=== PATIENT | female | born 1985 | race Caucasian/White ===

== ENCOUNTER 2018-10-15 18:55 | Emergency (ER) | payer MEDICAID, OTHER ==
[~2018-10-15] VITALS: Ht 175.3 cm; Wt 54.4 kg
--- NOTE | 2018-10-15 19:19 | NUR ---
ASSISSTED MD WITH EXAMINING PT. PT TOLERATED WELL.
[2018-10-15] MEDS ORDERED: MAGNESIUM CITRATE 296 ML BOTTLE ONE (19:28)
[2018-10-15] MEDS ORDERED: CEFTRIAXONE 500 MG VIAL ONE (19:28)
[2018-10-15] MEDS ORDERED: AZITHROMYCIN 250 MG TABLET ONE (19:28)
[2018-10-15] MEDS ORDERED: AZITHROMYCIN 250 MG TABLET PO ONE (19:30)
[2018-10-15] MEDS ORDERED: MAGNESIUM CITRATE 296 ML BOTTLE PO ONE (19:30)
[2018-10-15] MEDS ORDERED: CEFTRIAXONE 500 MG VIAL IM ONE (19:30)
--- NOTE | 2018-10-15 19:47 | NUR ---
Patient discharged to home in stable conditon. Written and verbal after care instructions given. Patient verbalizes understanding of instructions. PATIENT LEFT WITH STABLE GAIT.
[2018-10-15 19:48] VITALS: BP 110/81
== END 2018-10-15 19:49 | disposition home or self-care (01) ==
LOC: ER 18:55
DX: A54.9 Gonococcal infection, unspecified (principal); K59.00 Constipation, unspecified; F41.9 Anxiety disorder, unspecified; N92.0 Excessive and frequent menstruation with regular cycle; F17.200 Nicotine dependence, unspecified, uncomplicated; Z88.2 Allergy status to sulfonamides
CPT/HCPCS: 96372; 99283; J0696; A4663; Q0144

== ENCOUNTER 2018-11-17 23:14 | Emergency (ER) | payer MEDICAID ==
[~2018-11-17] VITALS: Ht 175.3 cm; Wt 65.8 kg
--- NOTE | 2018-11-17 23:27 | NUR ---
ER at bedside
[2018-11-17] MEDS ORDERED: MORPHINE SULFATE 2 MG/1 ML DISP.SYRIN IV ONE (23:30)
[2018-11-17] MEDS ORDERED: ONDANSETRON 4 MG/2 ML VIAL IV ONE (23:30)
[2018-11-17] MEDS ORDERED: PANTOPRAZOLE SODIUM 40 MG VIAL IV ONE (23:30)
[2018-11-17] MEDS ORDERED: IV NORMAL SALINE 1000 ML BAG IV ONE (23:30)
[2018-11-17] MEDS ORDERED: PANTOPRAZOLE SODIUM 40 MG VIAL ONE (23:48)
[2018-11-17] MEDS ORDERED: MORPHINE SULFATE 4 MG/1 ML DISP.SYRIN ONE (23:48)
[2018-11-17] MEDS ORDERED: ONDANSETRON 4 MG/2 ML VIAL ONE (23:48)
[2018-11-17 23:50] LABS: BASOPHILS # (AUTO) 0.1 K/uL (0.0-8.0); BASOPHILS % (AUTO) 0.3 % (0.0-2.0); EOSINOPHILS % (AUTO) 0.1 % (0.0-7.0); HEMATOCRIT 30.2 % (31.2-41.9); HEMOGLOBIN 9.8 g/dL (10.9-14.3); LYMPHOCYTES # (AUTO) 0.6 K/uL (20.0-40.0); MEAN CORPUSCULAR HEMOGLOBIN 23.6 uug (24.7-32.8); MEAN CORPUSCULAR HGB CONC 32 g/dL (32.3-35.6); MEAN CORPUSCULAR VOLUME 72.9 fL (75.5-95.3); MONOCYTES % (AUTO) 4.8 % (0.0-11.0); NEUTROPHILS # (AUTO) 18.5 K/uL (1.8-8.9); NEUTROPHILS % (AUTO) 91.8 % (38.5-71.5); PLATELET COUNT (AUTO) 383 K/uL (179-408); RED BLOOD CELL COUNT(AUTO) 4.14 MIL/uL (3.63-4.92); WHITE BLOOD COUNT (AUTO) 20.2 K/uL (3.8-11.8)
[2018-11-18 00:02] LABS: POTASSIUM 2.7 mmol/L (3.5-5.1)
[2018-11-18 00:03] LABS: BILIRUBIN,DIRECT 0.2 mg/dL (0.0-0.2); BILIRUBIN,TOTAL 0.4 mg/dL (0.2-1.0); TOTAL PROTEIN, SERUM 7.3 g/dL (6.4-8.2)
[2018-11-18] MEDS ORDERED: KETOROLAC TROMETHAMINE 30 MG INJ ONE (00:07)
[2018-11-18] MEDS ORDERED: POTASSIUM CHLORIDE 50 ML ONE (00:08)
--- NOTE | 2018-11-18 00:13 | NUR ---
Patient ambulated to restroom with stable gait. VSS.
[2018-11-18] MEDS ORDERED: POTASSIUM CHLORIDE 50 ML IV SCH (00:15)
[2018-11-18] MEDS ORDERED: KETOROLAC TROMETHAMINE 30 MG INJ IVP ONE (00:15)
--- NOTE | 2018-11-18 01:51 | NUR ---
Patient back from CT. No acute distress noted. VSS
[2018-11-18] MEDS ORDERED: CIPR-263 PO (02:05)
--- NOTE | 2018-11-18 02:12 | NUR ---
Patient in bed, no acute distress noted. VSS
--- NOTE | 2018-11-18 02:53 | NUR ---
Patient pending CT reading then cleared for Inpatient admission.
--- NOTE | 2018-11-18 03:26 | NUR ---
Patient discharged to home in stable conditon. Written and verbal after care instructions given. Patient verbalizes understanding of instructions. Ambulated from ER with stable gait. All belongings with patient. Peripheral IV removed prior to d/c.
[2018-11-18 03:27] VITALS: BP 121/67
== END 2018-11-18 03:30 | disposition home or self-care (01) ==
LOC: ER 23:18
DX: K59.00 Constipation, unspecified (principal); E87.6 Hypokalemia; F17.200 Nicotine dependence, unspecified, uncomplicated; Z88.2 Allergy status to sulfonamides; Z79.2 Long term (current) use of antibiotics
CPT/HCPCS: 36415 ×2; 74176; 76705; 80048; 80076; 83690; 83735; 84702; 85025; 96365; 96375; 99284; C9113; J1885; J2270; J2405; J3480; A4663

== ENCOUNTER 2018-11-19 22:25 | Emergency (ER) | payer MEDICAID ==
[~2018-11-19] VITALS: Ht 175.3 cm; Wt 56.7 kg
[~2018-11-19 22:25] MED LIST: CIPR-263 PO
--- NOTE | 2018-11-19 22:28 | NUR ---
PATIENT SENT TO WAITING WITH NO DISTRESS. NO ROOMS AVAILABLE IN ER AT THIS TIME
--- NOTE | 2018-11-19 23:00 | NUR ---
PATENT WAS CALLED SEVERAL TIMES TO BE PLACE IN ROOM. PATIENT WAS NOT PRESENT
--- NOTE | 2018-11-19 23:15 | NUR ---
PATIENT WAS NOT SEEN BY ERMD
== END 2018-11-19 23:15 | disposition left against medical advice (07) ==
LOC: ER 22:25
DX: Z53.21 Procedure and treatment not carried out due to patient leaving prior to being seen by health care provider (principal)
CPT/HCPCS: A4663

== ENCOUNTER 2021-07-26 05:54 | Inpatient (IN) | payer MEDICAID ==
[~2021-07-26] VITALS: Ht 175.3 cm; Wt 56.7 kg
[2021-07-26] MEDS ORDERED: IV NORMAL SALINE 250 ML IV ONE (07:10)
[2021-07-26] MEDS ORDERED: SWABABLE VALVE TRANSFER SET EA MC ONE (07:10)
[2021-07-26] MEDS ORDERED: IOHEXOL 300MG/ML 100 ML INFUS..BTL ONE (07:10)
[2021-07-26] MEDS ORDERED: SULF1TAB48 PO (07:13)
[2021-07-26 07:17] LABS: HEMATOCRIT 31.8 % (31.2-41.9); MEAN CORPUSCULAR HEMOGLOBIN 23.7 uug (24.7-32.8); MEAN CORPUSCULAR VOLUME 72.7 fL (75.5-95.3); PLATELET COUNT (AUTO) 450 K/uL (179-408)
[2021-07-26 07:22] LABS: CREATININE 0.9 mg/dL (0.6-1.3); POTASSIUM 3.8 mmol/L (3.5-5.1)
[2021-07-26 07:28] LABS: *BILIRUBIN,URIN NEGATIVE (NEGATIVE); *BLOOD, URINE NEGATIVE (NEGATIVE); *CLARITY,URINE CLEAR (CLEAR); *COLOR,URINE YELLOW (YELLOW); *KETONES,URINE NEGATIVE (NEGATIVE); *UROBILINOGEN,URINE 0.2 E.U./dl (NORMAL); LEUKOCYTE ESTERASE ,URINE NEGATIVE (NEGATIVE); NITRITE, URINE NEGATIVE (NEGATIVE); PH,URINE 5.5 (5.0-8.0); UGLUCOSE NEGATIVE (NEGATIVE)
[2021-07-26 07:28] LABS: BILIRUBIN,TOTAL 0.2 mg/dL (0.2-1.0); TOTAL PROTEIN, SERUM 7.7 g/dL (6.4-8.2)
[2021-07-26 07:31] LABS: *URINE HCG, QUAL NEG (NEGATIVE)
--- NOTE | 2021-07-26 09:03 | NUR ---
Patient is for admission to medical-surgical floor, pending insurance authorization for admission per ER registration staff Rene. Patient is resting comfortably on gurney while using her personal electronic device, NAD.
[2021-07-26] MEDS ORDERED: VANCOMYCIN 1G/D5W 200 ML PIGGYBACK IV ONE (09:15)
[2021-07-26] MEDS ORDERED: CEFTRIAXONE 1 G in IV DEXTROSE 5% 50 ML IV ONE (09:15)
--- NOTE | 2021-07-26 09:20 | NUR ---
[facility] hospitalist BREAKDOWN PERSON Robin [email or web address], pending callback from 3rd floor nurse November to get hands off report.
[2021-07-26] MEDS ORDERED: CEFTRIAXONE /D5W 50ML IVPB **ER PYXIS IV ONE (09:27)
[2021-07-26] MEDS ORDERED: VANCOMYCIN IV 200 ML ONE (10:02)
--- NOTE | 2021-07-26 10:55 | NUR ---
ADMITTED PATIENT FROM ER VIA STRETCHER ASSISTED BY KIMBERLEY MAGALLANES. SHE IS A/OX4, PHOTO TAKEN TO THE CHART RECORD. BELONGING LIST DONE AND SIGNED. SIGNED CONSENT FOR THE I&D. MRSA SWAB DONE ORDERED AND SENT TO THE LAB. SHE IS ON NPO, HAD A SIP OF COFFEE PER PATIENT, REPORT GIVEN TO KIMBERLEY JAQUEZ IN OR AND AWARE OF THE LAST MEAL AT 2AM AND COFFEE AT 7AM. ORIENTED PATIENT TO THE ROOM. KEPT CALL LIGHT WITHIN REACH. WILL CONTINUE TO MONITOR.
[2021-07-26] MEDS ORDERED: ONDANSETRON 4 MG/2 ML VIAL IV PRN (11:00)
[2021-07-26] MEDS ORDERED: ZOLPIDEM 5 MG TABLET PO PRN (11:00)
[2021-07-26 11:30] VITALS: BP 120/57
[2021-07-26] MEDS: IV D5 1/2 NS 1000 ML 1,000 ML IV PRN (11:48)
[2021-07-26] MEDS: MORPHINE SULFATE 4 MG/1 ML DISP.SYRIN IV PRN ×2 (11:48→16:41)
--- NOTE | 2021-07-26 12:15 | NUR ---
PATIENT LEFT FOR OR VIA HOSPITAL BED WITH THE 2 RN. PRN PAIN MEDICATION GIVEN PRIOR TO OR, IV INFUSED AT 75CC/HR AND HELD. NO DISTRESS IDENTIFIED. WILL CONTINUE TO MONITOR ONCE PATIENT IS BACK FROM OR.
[2021-07-26] MEDS ORDERED: LIDOCAINE 1%-EPI 1:100,000 20 ML VIAL ONE (12:35)
[2021-07-26] MEDS ORDERED: BUPIVACAINE 0.25% 30 ML VIAL ONE ×2 (12:36→12:47)
[2021-07-26] MEDS ORDERED: SODIUM BICARBONATE 8.4% 50 MEQ/50 ML DISP.SYRIN IV ONE (12:36)
[2021-07-26] MEDS ORDERED: LIDOCAINE 2%-EPI 1:100,000 20 ML VIAL ONE (12:46)
[2021-07-26] MEDS ORDERED: MIDAZOLAM HCL 2 MG/2 ML VIAL ONE (13:03)
[2021-07-26] MEDS ORDERED: FENTANYL CITRATE 250 MCG/5 ML AMPUL ONE (13:03)
[2021-07-26] MEDS ORDERED: METOCLOPRAMIDE HCL 10 MG/2 ML VIAL IV ONE (13:26)
[2021-07-26] MEDS ORDERED: SEVOFLURANE 250 ML BOTTLE IH ONE (13:26)
[2021-07-26] MEDS ORDERED: PROPOFOL 200 MG/20 ML BOTTLE IV ONE (13:26)
[2021-07-26] MEDS ORDERED: CEFAZOLIN 1 G VIAL IM ONE (13:26)
[2021-07-26] MEDS ORDERED: ONDANSETRON 4 MG/2 ML VIAL IV ONE (13:26)
[2021-07-26] MEDS ORDERED: LIDOCAINE-MPF 2% 5 ML VIAL IJ ONE (13:26)
[2021-07-26] MEDS ORDERED: HYDROMORPHONE 1 MG/1 ML DISP.SYRIN ONE (13:57)
--- NOTE | 2021-07-26 15:00 | NUR ---
RECEIVED PATIENT BACK FROM THE OR, JAMESON CHU GAVE REPORT. ORDER TO ADVANCE DIET TO TOLERATED. PATIENT STATED SHE IS HUNGRY, DIETARY MADE AWARE. VS FOLLOWS BP 113/63, T 98.1, HR 83, RR 18, O2 100% ON RA. WILL CONTINUE TO MONITOR.
[2021-07-26 16:00] VITALS: BP 136/82
[2021-07-26] MEDS ORDERED: CEFTRIAXONE 1 G in IV DEXTROSE 5% 50 ML IV SCH (16:00)
[2021-07-26] MEDS: VANCOMYCIN IV 1,000 MG in IV DEXTROSE 5% 250 ML IV SCH (16:16)
[2021-07-26] MEDS: HYDROMORPHONE 1 MG/1 ML DISP.SYRIN IV PRN (17:01)
--- NOTE | 2021-07-26 17:20 | NUR ---
DRESSING WAS NOTED WITH DRAINAGE. PHOTO SENT TO DR DEY AND MADE AWARE. WILL CONTINUE TO MONITOR. Addendum: 07/26/21 at 1744 by NOVEMBER Luis HENDRICKS RN DR ASTUDILLO MADE AWARE WELL. WILL CONTINUE TO MONITOR. Addendum: 07/26/21 at 1745 by NOVEMBER Luis HENDRICKS RN NOTED WITH SOAKED DRESSING.
--- NOTE | 2021-07-26 18:05 | NUR ---
NO DISTRESS IDENTIFIED. PATIENT IS ALERT/ORIENTED. ALL NEEDS ATTENDED. PRN MEDS GIVEN FOR PAIN ORDERED. KEPT CALL LIGHT WITHIN REACH. FREQUENT VISUAL CHECKS DONE. WILL ENDORSE TO THE NEXT SHIFT FOR CONTINUITY OF CARE.
[2021-07-26] MEDS: CEFTRIAXONE 1 G in IV DEXTROSE 5% 50 ML IV SCH (18:22)
[2021-07-26 20:45] VITALS: BP 106/61
[2021-07-26] MEDS ORDERED: HYDROMORPHONE 1 MG/1 ML DISP.SYRIN IV ONE (20:45)
--- NOTE | 2021-07-26 21:00 | NUR ---
Dr. Cohn contacted regarding saturated dressing on right hip and he stated to change dressing on top layer without going too far into the cavity. Pt was informed that dressing would be changed and reinforced but patient refused at this time. Will try again later.
[2021-07-26] MEDS ORDERED: CLINDAMYCIN PHOSPHATE IV 600 MG in IV DEXTROSE 5% 100 ML IV SCH (22:00)
[2021-07-27] MEDS: IV D5 1/2 NS 1000 ML 1,000 ML IV PRN (03:58)
[2021-07-27 04:42] VITALS: BP 100/62
[2021-07-27] MEDS: VANCOMYCIN IV 1,000 MG in IV DEXTROSE 5% 250 ML IV SCH ×2 (05:02→21:04)
--- NOTE | 2021-07-27 05:45 | NUR ---
Pt slept intermittently. Still refusing wound treatment at this time. IV site intact. Able to make needs known. No other issues or concerns at this time, will endorse to day shift.
[2021-07-27] MEDS: HYDROMORPHONE 1 MG/1 ML DISP.SYRIN IV PRN ×3 (06:28→23:41)
[2021-07-27 06:53] LABS: HEMATOCRIT 28.9 % (31.2-41.9); MEAN CORPUSCULAR HEMOGLOBIN 23.5 uug (24.7-32.8); MEAN CORPUSCULAR VOLUME 72.3 fL (75.5-95.3); PLATELET COUNT (AUTO) 411 K/uL (179-408)
[2021-07-27 07:35] LABS: CREATININE 0.7 mg/dL (0.6-1.3); POTASSIUM 3.7 mmol/L (3.5-5.1)
[2021-07-27] MEDS: NICOTINE 21 MG/24HR PATCH TD SCH (08:00)
[2021-07-27] MEDS: PANTOPRAZOLE SODIUM 40 MG VIAL IV SCH (08:00)
[2021-07-27 11:31] LABS: IRON, SERUM 14 ug/dL (50-175)
[2021-07-27 12:00] VITALS: BP 102/62
[2021-07-27] MEDS ORDERED: MIRALAX 17 GM POWD.PACK PO PRN (13:00)
--- NOTE | 2021-07-27 15:14 | NUR ---
Clinical Social Work Note SW consult was requested for substance use. Patient is a 36 year old female who is alert and oriented x4. Patient presents as guarded with flat affect. Patient was very irritable with SW and avoided eye contact and continued to avoid the SW by doing her makeup. 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 SW offered to help patient call rehabilitation centers with her but she declined. Patient stated that she was going to look over resources provided and call rehabilitation centers on her own. Patient was provided with a brief substance abuse intervention and referred to the following substance abuse programs: [facility] ([phone]); [facility] [address] [place] [address] ([phone]); [facility] [address] [facility] [address] ([phone]); [facility] ([phone]); [facility] [place] ([phone]); [facility] ([phone]); [facility] [place] ([phone]).
[2021-07-27 16:00] VITALS: BP 111/69
[2021-07-27] MEDS: CEFTRIAXONE 1 G in IV DEXTROSE 5% 50 ML IV SCH (17:51)
[2021-07-27 20:00] VITALS: BP 103/59
--- NOTE | 2021-07-27 21:01 | NUR ---
Patient in bed awake alertx4.IV on right AC infiltrated. Removed Iv and re inserted new IV on right UA using 22 g with good blood return. Infused IV ATb as ordered.No a/r noted.Call light with in reach.will continue to monitor.
[2021-07-28 04:00] VITALS: BP 104/65
[2021-07-28] MEDS: HYDROMORPHONE 1 MG/1 ML DISP.SYRIN IV PRN (06:28)
--- NOTE | 2021-07-28 06:36 | NUR ---
Patient c/o Rt hip pain .Medicated with Dilaudid as ordered.Noted saturated dressing on Rt hip .Changed top layer and covered with abdominal pad.Patient tolerated well .Will endorse to oncoming shift and to f/u wound consult in A.M
[2021-07-28 06:45] LABS: HEMATOCRIT 31.3 % (31.2-41.9); MEAN CORPUSCULAR HEMOGLOBIN 23.6 uug (24.7-32.8); MEAN CORPUSCULAR VOLUME 72.3 fL (75.5-95.3); PLATELET COUNT (AUTO) 467 K/uL (179-408)
[2021-07-28 07:22] LABS: CREATININE 0.6 mg/dL (0.6-1.3); MAGNESIUM 2.2 mg/dL (1.8-2.4); POTASSIUM 4.2 mmol/L (3.5-5.1)
[2021-07-28] MEDS ORDERED: ASCORBIC ACID 500 MG TABLET PO SCH (09:00)
[2021-07-28] MEDS ORDERED: FERROUS SULFATE 325 MG TABEC PO SCH (09:00)
[2021-07-28] MEDS: PANTOPRAZOLE SODIUM 40 MG VIAL IV SCH (09:34)
[2021-07-28] MEDS: NICOTINE 21 MG/24HR PATCH TD SCH (09:34)
--- NOTE | 2021-07-28 11:34 | NUR ---
WOUND CARE CONSULT: PT SEEN FOR WOUND ASSESSMENT. RT BUTTOCK WOUND HAS RED GRANULATION TISSUE. RECOMMEND PACKING WITH IODOFORM PACKING. DISCUSSED WITH NURSING STAFF AND WATER AND GAS HELPER. MD IN AGREEMENT WITH PLAN OF CARE. Addendum: 07/28/21 at 1136 by HERNÁN COLEY RN Amended: Links added.
[2021-07-28] MEDS: VANCOMYCIN IV 1,000 MG in IV DEXTROSE 5% 250 ML IV SCH (12:57)
--- NOTE | 2021-07-28 13:45 | NUR ---
Wounf Care RN in to see patient, wound care consult. Right hip wound was redressed, by KIMBERLEY Spencer tried to take picture prior dressing changes but realized no cartridge noted. Patient refused redo dressing r/t > pain when packing of nu-gauze .Wound appeared to be clean, ABD was applied, secured with paper tapes
[2021-07-28] MEDS ORDERED: SULF1TAB48 PO (15:59)
--- NOTE | 2021-07-28 16:15 | NUR ---
Per patient she's not allergic to Sulfa/Batrim , she thinks she was when she was young but had taken it already before and she was ok.
[2021-07-28 16:20] VITALS: BP 111/77
--- NOTE | 2021-07-28 17:07 | NUR ---
Reviewed discharge instructions, wound care, medications as ordered, well informed she needs to take her antibiotic 2x a day for 7 days, follow up with her Primary Medical Doctor . Rx was sent to [id number] .Patient will take uber when ready to leave .Saline lock right shoulder was dc'd, 2x2 dressings applied . No new complaints offered, verbalized understanding of the discharge instructions.
--- NOTE | 2021-07-28 17:15 | NUR ---
Present saline lock was already removed, discharge planning, called for uber per pt.
[2021-07-28] MEDS: CEFTRIAXONE 1 G in IV DEXTROSE 5% 50 ML IV SCH (17:52)
--- NOTE | 2021-07-28 18:38 | NUR ---
Ambulated down to the lobby, with no difficulty noted, refused to be taken down in a wheel chair. All belongings given back to patient, no new complaints noted. Discharged in good spirit with no new complaints noted. Discharged to home via Uber.
[2021-07-28] MEDS ORDERED: VANCOMYCIN IV 1,000 MG in IV DEXTROSE 5% 250 ML IV SCH (21:00)
[2021-07-29] MEDS ORDERED: ENSURE ENLIVE (VAN) 240 ML LIQUID PO SCH (09:00)
== END 2021-07-28 18:15 | disposition home or self-care (01) | DRG 364 ==
LOC: ER 05:58 → MEDSURG3 10:33
PROVIDERS: ADMIT Nurse Practitioner Family; ATTEND Nurse Practitioner Family
PROC: 0KDN0ZZ Extraction of Right Hip Muscle, Open Approach (ICD-10-PCS; principal; 2021-07-26)
DX: L02.415 Cutaneous abscess of right lower limb (principal); E44.1 Mild protein-calorie malnutrition; E88.09 Other disorders of plasma-protein metabolism, not elsewhere classified; D50.9 Iron deficiency anemia, unspecified; F11.10 Opioid abuse, uncomplicated; D75.839 Thrombocytosis, unspecified; L02.31 Cutaneous abscess of buttock; F15.10 Other stimulant abuse, uncomplicated; F17.210 Nicotine dependence, cigarettes, uncomplicated; K59.00 Constipation, unspecified; Z71.6 Tobacco abuse counseling; Z20.822 Contact with and (suspected) exposure to COVID-19; Z68.1 Body mass index [BMI] 19.9 or less, adult
CPT/HCPCS: 36415; 83550; 83605; 83735; 84100; 84703; 85025; 85730; 87040; 87070; 87077; A4217; A4649; A4663; C9113; G0378; J0690; J0696; J1170; J2250; J2270; J2405; J2765; J3010; J3370; J3490; J7040; J7050; J7060; Q9967